=== PATIENT | female | born 1975 | race Caucasian/White ===

== ENCOUNTER 2017-05-30 10:23 | Emergency (ER) | payer MEDICAID, MEDICARE, OTHER ==
[~2017-05-30] VITALS: Ht 171.4 cm; Wt 81.2 kg
[~2017-05-30 10:23] MED LIST: IBUP-238 PO; OXYC-360 PO; Z.0.NO CURRENT MEDS
[2017-05-30 10:24] VITALS: BP 108/72; PULSE 90; RESP 14; TEMP 98.7; O2SAT 98
[2017-05-30] MEDS ORDERED: RANI150C PO (11:44)
[2017-05-30] MEDS ORDERED: LORTABS (11:44)
[2017-05-30] MEDS ORDERED: HYDR-755 PO (11:45)
[2017-05-30] MEDS ORDERED: LORA-392 PO (11:45)
[2017-05-30] MEDS ORDERED: ACETAMINOPHEN/HYDROcodone 325 MG/5 MG TAB PO ONE (11:45)
[2017-05-30] MEDS ORDERED: PENI500T PO (11:49)
[2017-05-30] MEDS ORDERED: MAGICPED SWISH-SPIT (11:49)
--- NOTE | 2017-05-30 11:51 | PD ---
HPI Chief Complaint: Oral / Dental Pain or Problem Time Seen by Provider: 11:47 Travel History International Travel<30 days: No Contact w/Intl Traveler<30days: No Traveled to known affect area: No History of Present Illness HPI 41-year-old female presents to emergency department complaining of left upper tooth pain for approximately 1-2 days. Patient states that her pain worsened over the last night and felt feverish as well. Patient states she has developed a migraine and feels more tired. States she does have chronic tooth pain however, this is worsened. She has not followed up with her primary care physician regarding this problem. States she is due to get dentures. She does use tobacco destroying to quit. Denies nausea, vomiting or diarrhea. PFSH Past Medical History Diabetes: No Diminished Hearing: No Musculoskeletal: Yes (broken ribs) Neurologic: Yes (closed head injury) Respiratory: Yes (history of punctured lungs per pt) Seizures: No ?: Not LMP: 05/23/17 Menopausal: No : 2 Para: 2 Miscarriage: 0 : 0 Dilation and Curettage (D&C): Yes Past Surgical History Tonsillectomy: Yes Tympanostomy Tube: Yes Social History Alcohol Use: Yes (DRINKS EVERYDAY) Tobacco Use: Yes (1/2 PK DAILY) Substance Use: Yes (MARIJUANA) Allergies-Medications (Allergen,Severity, Reaction): Coded Allergies: No Known Allergies (Verified , 07/22/11) Reported Meds & Prescriptions Reported Meds & Active Scripts Active Magic Mouthwash Pediatric/Adult Liq (Lidocaine/Diphenhydr/Alum/Mg/Simeth) 60 Ml Susp 5 Ml SWISH-SPIT ACHS Each 5mL contains: Diphenydramine 4.5mg, Viscous Lidocaine 2% 10mg, Maalox Advanced Regular Strength 2.7ml Penicillin V Potassium 500 Mg Tab 500 Mg PO Q8H 7 Days Reported Hydroxyzine HCl 10 Mg Tab Unknown Dose PO Ativan (Lorazepam) 0.5 Mg Tab Unknown Dose PO DAILY PRN Ranitidine (Ranitidine HCl) 150 Mg Cap 150 Mg PO DAILY Review of Systems Except as stated in HPI: all other systems reviewed are Neg Physical Exam Narrative GENERAL: Well-nourished, well-developed patient. In no acute distress SKIN: Focused skin assessment warm/dry. HEAD: Normocephalic. EYES: No scleral icterus. No injection or drainage. Poor dentition, left upper premolar completely eroded to the gumline, mild bulging with slight erythema of the gums, TTP. No fluctuance or expression of fluid. NECK: Supple, trachea midline. No JVD or lymphadenopathy. No meningismus CARDIOVASCULAR: Regular rate and rhythm without murmurs, gallops, or rubs. RESPIRATORY: Breath sounds equal bilaterally. No accessory muscle use. MUSCULOSKELETAL: No cyanosis, or edema. BACK: Nontender without obvious deformity. No CVA tenderness. Data Data Last Documented VS Vital Signs Date Time Temp Pulse Resp B/P (MAP) Pulse Ox O2 Delivery O2 Flow Rate FiO2 05/30/17 10:24 98.7 90 14 108/72 (84) 98 Orders Orders Acetamin-Hydrocod 325-5 Mg (Brigantine 5-325 (05/30/17 11:45) Ed Discharge Order (05/30/17 11:51) [facility] Medical Decision Making Medical Screen Exam Complete: Yes Emergency Medical Condition: Yes Differential Diagnosis Left upper premolar abscess, infection, fracture Narrative Course 41-year-old female presents to emergency department complaining of left upper tooth pain for approximately 1-2 days. Patient states that her pain worsened over the last night and felt feverish as well. Patient states she has developed a migraine and feels more tired. States she does have chronic tooth pain however, this is worsened. She has not followed up with her primary care physician regarding this problem. States she is due to get dentures. She does use tobacco destroying to quit. Denies nausea, vomiting or diarrhea. Vital signs stable. Physical exam findings consistent with a dental infection. Poor dentition noted. No obvious fluctuance to indicate an abscess of the gingiva. Patient will be given a pain medication in the emergency department today. Advised to use [id number] ibuprofen. Antibiotics and Magic mouthwash for outpatient use. Smoking cessation discussed. Discussed the risks versus benefit of continuing smoking especially with the poor dentition that she has. Advised to follow-up with her dentist as soon as possible and primary care physician within one week. Return to the emergency department for worsening or persistent symptoms. Diagnosis Primary Impression: Dental infection Referrals: Dentist Patient Instructions: Cigarette Smoking and Your Health (GEN), General Instructions Additional Instructions: Alternate Magic mouthwash and salt water gargles for your tooth pain. Take all antibiotics as prescribed. Follow-up with a dentist as soon as possible. Follow-up with the primary care physician within one week. If he symptoms persist or worsen return to the emergency department. Scripts Pbxgtfsltbjtcrg-Vooouczou-Gca-Alum-Simeth Liq (Magic Mouthwash Pediatric/Adult Liq) 60 Ml Susp 5 ML SWISH-SPIT ACHS for Pain Management, #60 ML 0 Refills Each 5mL contains: Diphenydramine 4.5mg, Viscous Lidocaine 2% 10mg, Maalox Advanced Regular Strength 2.7ml Prov: Sylvie Medel 05/30/17 Penicillin V Potassium (Penicillin V Potassium) 500 Mg Tab 500 MG PO Q8H for Infection for 7 Days, #21 TAB 0 Refills Prov: Sylvie Medel 05/30/17 Disposition: 01 DISCHARGE HOME Condition: Stable Sylvie Medel May 30, 2017 11:50
[2017-06-06] MEDS ORDERED: LORA-392 PO (15:13)
[2017-06-06] MEDS ORDERED: HYDR50TA94 PO ×2 (15:13→16:04)
[2017-06-06] MEDS ORDERED: HYDR-3583 PO (15:13)
[2017-06-06] MEDS ORDERED: RANI150T PO (16:03)
[2017-06-07] MEDS ORDERED: RANI150T PO (18:18)
== END 2017-05-30 12:08 | disposition home or self-care (01) ==
LOC: NEPK 10:23
DX: K04.7 Periapical abscess without sinus (principal); F17.210 Nicotine dependence, cigarettes, uncomplicated
CPT/HCPCS: 99284

== ENCOUNTER 2017-07-03 06:37 | Day surgery (SDC) | payer MEDICARE ==
[~2017-07-03] VITALS: Ht 170.2 cm; Wt 86.4 kg
[2017-07-03] VITALS (11 sets, daily range): BP systolic 89–113; BP diastolic 52–67; PULSE 50–80; RESP 18–20; TEMP 98–98.4; O2SAT 91–95
[~2017-07-03 06:37] MED LIST changes: +HYDR-3583 PO; +HYDR50TA94 PO; -IBUP-238 PO; +LORA-392 PO; -OXYC-360 PO; +RANI150T PO; -Z.0.NO CURRENT MEDS
[2017-07-03] MEDS ORDERED: OMEP40CA2 (07:10)
[2017-07-03] MEDS ORDERED: METR1TAB76 PO (07:10)
[2017-07-03] MEDS ORDERED: SODIUM CHLOR 0.9% 1000 ML IV SCH (07:15)
[2017-07-03] MEDS ORDERED: MIDAZOLAM HCL 2 MG/2 ML VIAL ONE (07:39)
[2017-07-03] MEDS ORDERED: LIDOCAINE HCL 1% 20 ML VIAL ONE (07:46)
--- NOTE | 2017-07-03 08:38 | PD.RAD ---
Post CT Procedure Prog Note Pre Procedure Diagnosis: (1) Renal mass Post Procedure Diagnosis: (1) Renal mass Procedure Date: Jul 03, 2017 Supervising Radiologist: Angel Alvares Anesthesia: Conscious Sedation Plan of Activity Patient to Unit: ROPU Patient Condition: Good See PACS Report for procedural detail/treatment Angel Alvares MD Jul 03, 2017 08:38
[2017-07-03 09:17] LABS: HEMATOCRIT 36.9 % (35.0-46.0); HEMOGLOBIN 12.7 GM/DL (11.6-15.3)
--- NOTE | 2017-07-03 09:54 | RADRPT ---
EXAM DATE/TIME: 07/03/2017 08:04 [facility] COMPARISON: No previous studies available for comparison. INDICATIONS : Right renal mass SEDATION TIME: 30 minutes BIOPSY SITE: Right kidney MEDICATION(S): 1.) 2 mg midazolam (Versed) IV 2.) 100 mcg fentanyl (Sublimaze) IV DEVICE(S): 1.) 18 gauge Temno core biopsy needle 2.) 17 gauge Sexton blunt needle MEDICAL HISTORY : None. SURGICAL HISTORY : None. ENCOUNTER: Initial ACUITY: 1 day PAIN SCORE: 0/10 LOCATION: Right flank A total of five core specimen(s) were obtained and sent to the laboratory for pathologic evaluation. PROCEDURE: 1. CT guided renal biopsy. 2. Conscious sedation with continuous EKG and oximetry monitoring. 3. EKG and oximetry remained stable throughout the procedure. Prior to the procedure informed consent was obtained. Any appropriate prior imaging studies were rev iewed. Using automated exposure control and adjustment of the mA and/or kV according to patient size, radiat ion dose was kept as low as reasonably achievable to obtain optimal diagnostic quality images. DICOM format image data is available electronically for review and comparison. The site was prepped in a sterile fashion. Full sterile technique was used, including cap, mask, anel rile gloves and gown and a large sterile sheet. Hand hygiene and 2% chlorhexidine and/or betadine/al cohol prep was utilized per protocol for cutaneous antisepsis. The skin and subcutaneous tissues wer e infiltrated with local anesthetic solution. With CT guidance the previously identified target was localized. Biopsy was performed using the presc ribed needle as above. Adequate hemostasis was obtained with compression at the puncture site. Follow-up CT scan reveals no hemorrhage. The patient tolerated the procedure well and there were no complications. The patient was returned to the Radiology Outpatient Unit in stable condition. CONCLUSION: Uncomplicated CT guided biopsy. Angel Alvares MD on July 03, 2017 at 9:37 Board Certified Radiologist. This report was verified electronically.
[2017-07-03 12:50] LABS: HEMATOCRIT 38.6 % (35.0-46.0); HEMOGLOBIN 13.1 GM/DL (11.6-15.3)
== END 2017-07-03 14:50 | disposition home or self-care (01) ==
LOC: HRAD 06:37 → HRIP 06:41 → HRAD 14:50
PROVIDERS: ATTEND Urology
DX: C64.1 Malignant neoplasm of right kidney, except renal pelvis (principal); K21.9 Gastro-esophageal reflux disease without esophagitis; F41.9 Anxiety disorder, unspecified
CPT/HCPCS: 50200; 77012; 85014; 85018; 88305; J2250; J3010

== ENCOUNTER → 2017-08-15 | Outpatient (CLI) | payer MEDICARE, MEDICAID ==
[~2017-08-15] MED LIST changes: +METR1TAB76 PO; +OMEP40CA2
--- NOTE | 2017-08-15 11:40 | RADRPT ---
EXAM DATE/TIME: 08/15/2017 11:07 [facility] COMPARISON: No previous studies available for comparison. INDICATIONS : Evaluate for pneumonia, pneumothorax or communicable disease. Pre op for right kidney removal. MEDICAL HISTORY : None. SURGICAL HISTORY : renal biopsy ENCOUNTER: Initial ACUITY: 1 day PAIN SCORE: 0/10 LOCATION: Bilateral chest FINDINGS: PA and lateral views of the chest demonstrate blunting at the left costophrenic angle with multiple r emote left rib fractures likely from previous trauma. No consolidation. Heart size normal. CONCLUSION: 1. Remote healed left rib fractures with chronic scarring at the left costophrenic angle. No active d isease. Yousuf Ortiz MD on August 15, 2017 at 11:37 Board Certified Radiologist. This report was verified electronically.
[2017-08-15 11:41] LABS: AUTOMATED NEUTROPHIL # 4.4 TH/MM3 (1.8-7.7); BASOPHIL % 0.5 % (0.0-2.0); EOSINOPHIL # 0.1 TH/MM3 (0-0.4); EOSINOPHIL % 1.7 % (0.0-4.0); HEMATOCRIT 37.5 % (35.0-46.0); LYMPH % 35.4 % (9.0-44.0); LYMPHOCYTE # 2.8 TH/MM3 (1.0-4.8); MEAN CELL VOLUME 89.1 FL (80.0-100.0); MEAN CORPUSCULAR HEMOGLOBIN 30.8 PG (27.0-34.0); MEAN CORPUSCULAR HGB CONC 34.5 % (32.0-36.0); MONO % 7.6 % (0.0-8.0); MONOCYTE # 0.6 TH/MM3 (0-0.9); NEUT % 54.8 % (16.0-70.0); PLATELET COUNT 220 TH/MM3 (150-450); RED BLOOD COUNT 4.21 MIL/MM3 (4.00-5.30); RED CELL DISTRIBUTION WIDTH 13.9 % (11.6-17.2)
[2017-08-15 11:54] LABS: PROTHROMBIN TIME - PATIENT 10.1 SEC (9.8-11.6)
[2017-08-15 12:06] LABS: ALBUMIN 3.8 GM/DL (3.4-5.0); ALT (GPT) 17 U/L (10-53); AST (GOT) 13 U/L (15-37); BICARBONATE 28.7 MEQ/L (21.0-32.0); BLOOD UREA NITROGEN 11 MG/DL (7-18); CALCIUM 8.9 MG/DL (8.5-10.1); CHLORIDE 108 MEQ/L (98-107); CREATININE 0.92 MG/DL (0.50-1.00); GLOMERULAR FILTRATION RATE 67 ML/MIN (>89); GLUCOSE,FASTING 81 MG/DL (74-99); SODIUM (NA) 143 MEQ/L (136-145)
[2017-08-15 12:09] LABS: ALKALINE PHOSPHATASE 51 U/L (45-117); TOTAL BILIRUBIN ADULT 0.2 MG/DL (0.2-1.0); TOTAL PROTEIN 7.1 GM/DL (6.4-8.2)
== END ==
LOC: CPRE 10:22
PROVIDERS: ATTEND Urology
DX: Z01.812 Encounter for preprocedural laboratory examination (principal); Z01.811 Encounter for preprocedural respiratory examination; N28.89 Other specified disorders of kidney and ureter
CPT/HCPCS: 36415; 71046; 80053; 85025; 85610; 85730

== ENCOUNTER 2017-08-22 07:44 | Inpatient (IN) | payer MEDICARE, MEDICAID ==
[~2017-08-22] VITALS: Ht 170.2 cm; Wt 82.9 kg
[~2017-08-22 07:44] MED LIST changes: -METR1TAB76 PO; -RANI150T PO
[2017-08-22] MEDS ORDERED: ceFAZolin INJ 1,000 MG VIAL ONE (08:06)
[2017-08-22] MEDS ORDERED: SODIUM CHLORIDE 0.9% INJ 100 ML ONE (08:07)
[2017-08-22] MEDS ORDERED: LACTATED RINGER'S 1000 ML IV PRN (08:30)
[2017-08-22] MEDS ORDERED: POVIDONE IODINE 5% (ANTISEPSIS KIT) 4 APPLICATIONS EACH NARE PRN (08:30)
[2017-08-22] MEDS ORDERED: METOPROLOL TARTRATE 25 MG TAB PO PRN (08:30)
[2017-08-22] MEDS ORDERED: ceFAZolin 1,000 MG/NS 100 ML IV SCH ×2 (08:30)
[2017-08-22] MEDS ORDERED: SODIUM CHLORID 0.9% 500 ML IV PRN (08:30)
[2017-08-22] MEDS ORDERED: CHLORHEXIDINE GLUCONATE 2 % 1 PACK (2 CLOTHS) TOPICAL PRN (08:30)
[2017-08-22] MEDS ORDERED: ENOXAPARIN SODIUM 30 MG/0.3 ML SYRINGE SQ ONE (09:42)
[2017-08-22] MEDS ORDERED: ENOXAPARIN SODIUM 30 MG/0.3 ML SYRINGE ONE (09:52)
[2017-08-22] MEDS ORDERED: BUPIVACAINE HCL PF 0.5% 30 ML VIAL ONE (10:19)
[2017-08-22] MEDS ORDERED: MANNITOL INJ 0 ML ONE (10:19)
[2017-08-22] MEDS ORDERED: NORMOSOL R INJ 1,000 ML IV ONE (12:00)
[2017-08-22] MEDS ORDERED: DEXAMETHASONE SOD PHOS 4 MG/ML VIAL IV ONE (12:00)
[2017-08-22] MEDS ORDERED: STERILE WATER FOR INJECTION 20 ML VIAL IV ONE (12:00)
[2017-08-22] MEDS ORDERED: PHENYLEPH/NS 1000 MCG/10 ML SYR IV ONE (12:00)
[2017-08-22] MEDS ORDERED: VECURONIUM BROMIDE 20 MG VIAL IV ONE (12:00)
[2017-08-22] MEDS ORDERED: LIDOCAINE HCL 1% PF 5 ML SYRINGE OTHER ONE (12:00)
[2017-08-22] MEDS ORDERED: PROPOFOL 200 MG/20 ML AMP IV ONE (12:00)
[2017-08-22] MEDS ORDERED: ROCURONIUM INJ 50 MG/5 ML SYRINGE IV PUSH ONE (12:00)
[2017-08-22] MEDS ORDERED: LACTATED RINGER'S 1000 ML INJ 1,000 ML IV ONE (12:00)
[2017-08-22] MEDS ORDERED: LABETALOL HCL 100 MG/20 ML VIAL IV ONE (12:00)
[2017-08-22] MEDS ORDERED: GLYCOPYRROLATE 1 MG/5 ML SYRINGE IV PUSH ONE (12:00)
[2017-08-22] MEDS ORDERED: NEOSTIGMINE 5 MG/5 ML SYRINGE IV PUSH ONE (12:00)
[2017-08-22] MEDS ORDERED: ONDANSETRON HCL 4 MG/2 ML VIAL IV ONE (12:00)
[2017-08-22] MEDS ORDERED: ESMOLOL HCL 100 MG/10 ML VIAL IV ONE (12:00)
[2017-08-22] MEDS ORDERED: HYDROmorphone HCL PF 2 MG/ML VIAL ONE (12:26)
[2017-08-22] MEDS ORDERED: ACETAMINOPHEN 1000 MG/100 ML 100 ML IV ONE (12:26)
[2017-08-22] MEDS ORDERED: SUGAMMADEX SODIUM 200 MG/2 ML VIAL IV PUSH ONE (13:24)
--- NOTE | 2017-08-22 13:46 | PD.OP ---
Operative Report Date of Surgery: Aug 22, 2017 Preoperative Diagnosis: 5 cm centrally located right renal mass Postoperative Diagnosis: Same Procedure: Right hand-assisted laparoscopic radical nephrectomy Anesthesia: DINORAHA Surgeon: Alexis Ratliff Projects Manager(s): Dr. Juan David Sepulveda Resident Surgeon: None Operation and Findings: 41-year-old female presented to the office with with findings of a 4-5 cm centrally located right renal mass. Decision was made to undergo laparoscopic hand-assisted right radical nephrectomy. Risks and benefits were discussed preoperatively including bleeding, infection, and extra organ injury. The patient was willing to proceed. The patient was brought to the operating room and identified by myself as Jannie Acuna. She was placed on to the beanbag and then underwent endotracheal tube intubation. She was then placed in the lateral recumbent position with the right side up and all areas were appropriately padded. The beanbag was then inflated. She was secured down with tape and a safety strap. She was then prepped and draped in usual sterile fashion and received preprocedure antibiotics. 15 blade was made to use the opening incision in the area just superior of the right inguinal canal. Raul' s and Camper's fascia were entered as well as the external oblique aponeurosis. The gel point was then placed into the area of the wound. A 12 mm cannula was then inserted through the GelPort and then insufflation occurred. A 12 mm cannula port was then inserted 2 cm cephalad and lateral to the umbilicus. Another 12 mm port was then inserted in the area of the subcostal region under direct visualization. Once all ports were then correctly placed, laparoscopic nephrectomy proceeded. Using my left hand the overlying stratum was then dissected with the harmonic scalpel. Initially the kidney was difficult to identify its location, however, it was found to be above the right lobe of the liver, with the liver draping over the kidney. The kidney was located very posteriorly. Once the overlying stratum was dissected away freely and then the kidney was finally identified. Using the harmonic scalpel, the lateral inferior and superior attachments were freed up. This left the hilum and the ureter still intact. Using the Ethicon stapler with a load of 45 the hilum was then ligated. Laparoscopic clips were then used to clip the ureter. The ureter was then cut with harmonic scalpel. The kidney was then delivered through the GelPort and sent to pathology. Hemostasis was checked for in the renal fossa was irrigated with normal saline. There is no evidence of any bleeding at this point in time. Surgicel powder was then used to provide further hemostasis and then a PHILIPPE drain was left in the 12mm port. The GelPort incision site was then closed by a 2 layer closure with a loop PDS followed by a #1 Vicryl suture. The wound was then irrigated and then a Monocryl suture was then used to subcuticular close the wound. The remaining 2 gel ports were then closed with Monocryl suture. The drain was sewn in with a nylon suture. Blood loss during the procedure was 100 cc. She tolerated the procedure well and was extubated and transferred to recovery room in stable condition. Alexis Ratliff DO Aug 22, 2017 13:46
[2017-08-22] MEDS ORDERED: ONDANSETRON HCL 4 MG/2 ML VIAL IV PUSH PRN (14:00)
[2017-08-22] MEDS ORDERED: ACETAMINOPHEN 650 MG/20.3 ML UDC PO PRN (14:00)
[2017-08-22] MEDS ORDERED: LORazepam 2 MG/ML VIAL ONE (14:05)
[2017-08-22] MEDS ORDERED: DO NOT ADM ANY ANTICOAGULANT DRUGS PRN (14:14)
[2017-08-22] MEDS ORDERED: LORazepam 2 MG/ML VIAL IV PUSH PRN (14:15)
[2017-08-22] MEDS ORDERED: MIDAZOLAM HCL 2 MG/2 ML VIAL ONE (14:22)
[2017-08-22] MEDS ORDERED: MORPHINE SULFATE 4 MG/ML INJ ONE (14:23)
[2017-08-22] MEDS ORDERED: HYDROmorphone HCL PCA 6 MG/30 ML IV ONE (14:30)
[2017-08-22] MEDS: LACTATED RINGER'S 1000 ML INJ 1,000 ML IV SCH ×2 (14:30→17:49)
[2017-08-22] MEDS ORDERED: ENOXAPARIN SODIUM 30 MG/0.3 ML SYRINGE SQ SCH (15:00)
[2017-08-22] MEDS: PANTOPRAZOLE SODIUM 40 MG VIAL IV PUSH SCH (15:15)
[2017-08-22] MEDS ORDERED: NALOXONE HCL 0.4 MG/ML AMP IV PUSH PRN (15:30)
[2017-08-22] MEDS ORDERED: diphenhydrAMINE HCL 50 MG/ML VIAL IV PUSH PRN (15:30)
[2017-08-22] MEDS ORDERED: *ONDANSETRON 4 MG VIAL PERIprocedural Use ONLY ONE (16:35)
[2017-08-22 17:37] LABS: HEMATOCRIT 38.3 % (35.0-46.0); MEAN CELL VOLUME 88.4 FL (80.0-100.0); MEAN CORPUSCULAR HEMOGLOBIN 29.9 PG (27.0-34.0); MEAN CORPUSCULAR HGB CONC 33.8 % (32.0-36.0); MEAN PLATELET VOLUME 9.5 FL (7.0-11.0); PLATELET COUNT 231 TH/MM3 (150-450); RED BLOOD COUNT 4.34 MIL/MM3 (4.00-5.30); RED CELL DISTRIBUTION WIDTH 13.7 % (11.6-17.2)
[2017-08-22] MEDS: HYDROmorphone HCL PCA 6 MG/30 ML IV SCH (17:41)
[2017-08-22 17:57] LABS: BICARBONATE 24.3 MEQ/L (21.0-32.0); CALCIUM 8.2 MG/DL (8.5-10.1); CREATININE 1.3 MG/DL (0.50-1.00)
[2017-08-22] MEDS: CEFAZOLIN INJ 2,000 MG in SODIUM CHLORIDE 0.9% INJ 100 ML IV SCH (18:07)
[2017-08-22 20:00] VITALS: BP 94/56; PULSE 53; RESP 18; TEMP 97.1; O2SAT 100
[2017-08-22 21:13] VITALS: O2SAT 100
[2017-08-22] MEDS: PCA - TOTAL MG DILAUDID DELIVERED PER SHIFT SCH (21:26)
[2017-08-22] MEDS: hydrOXYzine HCL 50 MG TAB PO SCH (21:36)
[2017-08-23] VITALS (8 sets, daily range): BP systolic 106–130; BP diastolic 61–71; PULSE 52–99; RESP 16–18; TEMP 97.6–99.4; O2SAT 94–98
[2017-08-23] MEDS: CEFAZOLIN INJ 2,000 MG in SODIUM CHLORIDE 0.9% INJ 100 ML IV SCH ×2 (03:45→09:49)
[2017-08-23] MEDS: PCA - TOTAL MG DILAUDID DELIVERED PER SHIFT SCH ×3 (04:53→22:00)
[2017-08-23] MEDS: LACTATED RINGER'S 1000 ML INJ 1,000 ML IV SCH ×2 (04:53→14:56)
[2017-08-23 08:32] LABS: HEMATOCRIT 36.5 % (35.0-46.0); HEMOGLOBIN 12.3 GM/DL (11.6-15.3); MEAN CELL VOLUME 87.9 FL (80.0-100.0); MEAN CORPUSCULAR HEMOGLOBIN 29.6 PG (27.0-34.0); MEAN CORPUSCULAR HGB CONC 33.7 % (32.0-36.0); PLATELET COUNT 272 TH/MM3 (150-450); RED BLOOD COUNT 4.15 MIL/MM3 (4.00-5.30); RED CELL DISTRIBUTION WIDTH 13.7 % (11.6-17.2)
[2017-08-23 09:04] LABS: CALCIUM 8.3 MG/DL (8.5-10.1); CREATININE 1.69 MG/DL (0.50-1.00)
--- NOTE | 2017-08-23 09:07 | HHI.PR ---
Subjective Patient symptoms today Pt seen and examined. Pain controlled. Objective Vital Signs Vital Signs Date Time Temp Pulse Resp B/P (MAP) Pulse Ox O2 Delivery O2 Flow Rate FiO2 08/23/17 08:14 95 08/23/17 08:00 97.9 67 18 130/63 (85) 96 08/23/17 04:53 17 08/23/17 04:00 97.6 52 17 110/61 (77) 98 08/23/17 00:00 97.6 53 17 106/62 (77) 95 08/22/17 21:26 17 08/22/17 21:13 100 Nasal Cannula 4.00 08/22/17 20:00 97.1 53 18 94/56 (69) 100 08/22/17 17:41 16 08/22/17 16:40 51 16 109/66 (80) 96 Nasal Cannula 4 08/22/17 16:00 51 16 106/64 (78) 96 Nasal Cannula 4 08/22/17 15:00 53 16 114/63 (80) 94 Nasal Cannula 5 08/22/17 14:45 59 16 98/52 (67) 92 Nasal Cannula 5 08/22/17 14:30 57 16 101/52 (68) 93 Nasal Cannula 5 08/22/17 14:15 75 16 129/72 (91) 94 Nasal Cannula 3 08/22/17 14:07 98.0 97 16 121/79 (93) 96 Nasal Cannula 3 Intake & Output 08/23/17 08/23/17 07:00 19:00 Intake Total 1360 ml Output Total 220 ml Balance 1140 ml Intake Oral 240 ml IV Total 1120 ml Output Urine Total 200 ml Drainage Total 20 ml Result Diagram: 08/23/17 0807 08/23/17 0807 Objective Remarks Abd:soft,nt,nd Kyle with clear urine PHILIPPE serous drainage Medications and IVs Current Medications Medications (Trade) Dose Ordered Sig/Cynthia Route Start Time Stop Time Status Last Admin Lactated Ringer's 1,000 ml @ 30 mls/hr Q24H PRN IV 08/22/17 08:30 08/25/17 08:29 08/22/17 08:37 Sodium Chloride 500 ml @ 30 mls/hr [id number] PRN IV 08/22/17 08:30 08/25/17 08:29 (Lopressor) 25 mg HOT STRIP FINISHER PRN PO 08/22/17 08:30 08/25/17 08:29 (Betadine 5% Antisepsis Kit) 1 applic HOT STRIP FINISHER PRN EACH NARE 08/22/17 08:30 08/25/17 08:29 08/22/17 08:37 (Chlorhexidine 2% Cloth) 3 pack HOT STRIP FINISHER PRN TOPICAL 08/22/17 08:30 08/25/17 08:29 08/22/17 08:37 Cefazolin Sodium 1000 mg/Sodium Chloride 100 ml @ 200 mls/hr HOT STRIP FINISHER IV 08/22/17 08:30 08/25/17 08:29 08/22/17 10:37 Lactated Ringer's 1,000 ml @ 100 mls/hr Q10H IV 08/22/17 14:00 08/23/17 04:53 Cefazolin Sodium 2000 mg/Sodium Chloride 120 ml @ 240 mls/hr Q8H IV 08/22/17 19:00 08/23/17 11:29 08/23/17 03:45 (Tylenol 650 Mg/ 20 ml Liq) 650 mg Q6H PRN PO 08/22/17 14:00 (Zofran Inj) 4 mg Q6HR PRN IV PUSH 08/22/17 14:00 08/22/17 17:48 (Ativan) 0.5 mg Q8H PRN PO 08/22/17 14:00 (Percocet 10-325 Mg) 1 tab Q6H PRN PO 08/22/17 14:00 (Atarax) 50 mg HS PO 08/22/17 21:00 08/22/17 21:36 (Protonix Inj) 40 mg Q24H IV PUSH 08/22/17 14:00 08/22/17 15:15 (Ativan Inj) 1 mg Q6H PRN IV PUSH 08/22/17 14:15 08/22/17 14:10 (Lovenox Inj) 30 mg Q24H SQ 08/23/17 15:00 Miscellaneous Information ALL NURSING DEPARTME... UNSCH PRN .XX 08/22/17 14:14 08/23/17 14:13 (Dilaudid CHOREOGRAPHY DIRECTOR Inj) 6 mg UNSCH IV 08/22/17 15:30 08/22/17 17:41 CHOREOGRAPHY DIRECTOR Dosage Infused (Pha) 1 Q8HR .XX 08/22/17 22:00 08/23/17 04:53 (Narcan Inj) 0.4 mg UNSCH PRN IV PUSH 08/22/17 15:30 (Benadryl Inj) 25 mg Q6H PRN IV PUSH 08/22/17 15:30 Assessment and Plan Assessment and Plan Stable s/p Right ESTRADA lap Nx OOB/Ambulate Void trial today Alexis Ratliff DO Aug 23, 2017 09:07
[2017-08-23] MEDS: ENOXAPARIN SODIUM 30 MG/0.3 ML SYRINGE SQ SCH (14:32)
[2017-08-23] MEDS: PANTOPRAZOLE SODIUM 40 MG VIAL IV PUSH SCH (14:32)
[2017-08-23] MEDS: hydrOXYzine HCL 50 MG TAB PO SCH (21:00)
[2017-08-24] VITALS (8 sets, daily range): BP systolic 112–124; BP diastolic 67–90; PULSE 59–87; RESP 16–19; TEMP 98.1–99; O2SAT 94–99
[2017-08-24] MEDS: HYDROmorphone HCL PCA 6 MG/30 ML IV SCH (00:42)
[2017-08-24 05:28] LABS: HEMATOCRIT 31.6 % (35.0-46.0); HEMOGLOBIN 10.8 GM/DL (11.6-15.3); MEAN CELL VOLUME 87.8 FL (80.0-100.0); MEAN CORPUSCULAR HEMOGLOBIN 30.1 PG (27.0-34.0); MEAN CORPUSCULAR HGB CONC 34.3 % (32.0-36.0); MEAN PLATELET VOLUME 9.1 FL (7.0-11.0); PLATELET COUNT 207 TH/MM3 (150-450); RED CELL DISTRIBUTION WIDTH 13.5 % (11.6-17.2); WHITE BLOOD COUNT 8.9 TH/MM3 (4.0-11.0)
[2017-08-24 06:00] LABS: BICARBONATE 26.5 MEQ/L (21.0-32.0); CALCIUM 8.3 MG/DL (8.5-10.1); CREATININE 1.4 MG/DL (0.50-1.00)
[2017-08-24] MEDS ORDERED: RESP: ALBUTEROL 2.5 MG/3 ML NEB (PRN) NEB (09:15)
[2017-08-24] MEDS ORDERED: oxyCODONE/ACETAMINOPHEN 7.5 MG/325 MG TAB PO PRN (09:15)
[2017-08-24] MEDS ORDERED: BISACODYL 10 MG SUPP RECTAL ONE (09:15)
[2017-08-24] MEDS ORDERED: HYDROmorphone HCL PF 2 MG/ML VIAL IV PUSH PRN (09:15)
[2017-08-24] MEDS ORDERED: RESP: ALBUTEROL 2.5 MG/3 ML NEB (SCH) INH ONE (09:30)
[2017-08-24] MEDS: LACTATED RINGER'S 1000 ML INJ 1,000 ML IV SCH ×3 (10:02→20:35)
[2017-08-24] MEDS: LORazepam 0.5 MG TAB PO PRN ×2 (10:27→20:34)
[2017-08-24] MEDS: oxyCODONE/ACETAMINOPHEN 10 MG/325 MG TAB PO PRN ×2 (10:27→17:35)
[2017-08-24] MEDS: PANTOPRAZOLE SODIUM 40 MG VIAL IV PUSH SCH (13:06)
[2017-08-24] MEDS: ENOXAPARIN SODIUM 30 MG/0.3 ML SYRINGE SQ SCH (13:07)
[2017-08-24] MEDS: hydrOXYzine HCL 50 MG TAB PO SCH (20:33)
[2017-08-25] VITALS: BP 115/72; PULSE 85; RESP 16; TEMP 98.3; O2SAT 92
[2017-08-25] MEDS: oxyCODONE/ACETAMINOPHEN 10 MG/325 MG TAB PO PRN ×2 (01:07→08:52)
[2017-08-25 04:00] VITALS: BP 111/74; PULSE 81; RESP 16; TEMP 98.2; O2SAT 99
[2017-08-25 07:57] VITALS: BP 125/66; PULSE 75; RESP 18; TEMP 97.8; O2SAT 96
--- NOTE | 2017-08-25 08:32 | HHI.PR ---
Subjective Patient symptoms today Pt seen and examined. Feels well. Objective Vital Signs Vital Signs Date Time Temp Pulse Resp B/P (MAP) Pulse Ox O2 Delivery O2 Flow Rate FiO2 08/25/17 07:57 97.8 75 18 125/66 (85) 96 08/25/17 04:00 98.2 81 16 111/74 (86) 99 08/25/17 00:00 98.3 85 16 115/72 (86) 92 08/24/17 21:54 94 Nasal Cannula 2.00 08/24/17 20:00 98.2 87 16 112/75 (87) 95 08/24/17 15:46 98.1 81 19 116/67 (83) 95 08/24/17 11:36 98.8 59 19 120/70 (87) 95 08/24/17 11:30 99 Nasal Cannula 2.00 Intake & Output 08/25/17 08/25/17 06:59 18:59 Intake Total 1240 ml Balance 1240 ml Intake Oral 240 ml IV Total 1000 ml # Voids 3 # Bowel Movements 0 Result Diagram: 08/24/17 0453 08/24/17 0453 Objective Remarks Abd:soft,nt,nd Kyle with clear urine PHILIPPE serous drainage 08/25 Abd:soft,nt,nd Wound:clean and dry Voiding well. Medications and IVs Current Medications Medications (Trade) Dose Ordered Sig/Cynthia Route Start Time Stop Time Status Last Admin Lactated Ringer's 1,000 ml @ 100 mls/hr Q10H IV 08/22/17 14:00 08/24/17 20:35 (Tylenol 650 Mg/ 20 ml Liq) 650 mg Q6H PRN PO 08/22/17 14:00 (Zofran Inj) 4 mg Q6HR PRN IV PUSH 08/22/17 14:00 08/22/17 17:48 (Ativan) 0.5 mg Q8H PRN PO 08/22/17 14:00 08/24/17 20:34 (Percocet 10-325 Mg) 1 tab Q6H PRN PO 08/22/17 14:00 08/25/17 01:07 (Atarax) 50 mg HS PO 08/22/17 21:00 08/24/17 20:33 (Protonix Inj) 40 mg Q24H IV PUSH 08/22/17 14:00 08/24/17 13:06 (Ativan Inj) 1 mg Q6H PRN IV PUSH 08/22/17 14:15 08/22/17 14:10 (Lovenox Inj) 30 mg Q24H SQ 08/23/17 15:00 08/24/17 13:07 (Benadryl Inj) 25 mg Q6H PRN IV PUSH 08/22/17 15:30 (Dilaudid Pf Inj) 1 mg Q4H PRN IV PUSH 08/24/17 09:15 (Albuterol Neb) 2.5 mg Q8HR NEB PRN NEB 08/24/17 09:15 Assessment and Plan Assessment and Plan Stable s/p Right ESTRADA lap Nx OOB/Ambulate Void trial today 08/25 Stable s/p Right ESTRADA lap Nx D/C home today Alexis Ratliff DO Aug 25, 2017 08:32
[2017-08-25] MEDS: LORazepam 0.5 MG TAB PO PRN (10:01)
== END 2017-08-25 11:41 | disposition home or self-care (01) | DRG 658 ==
LOC: HSDI 07:44 → N07B 16:48
PROVIDERS: ADMIT Urology; ATTEND Urology
PROC: 0TT00ZZ Resection of Right Kidney, Open Approach (ICD-10-PCS; principal; 2017-08-22 10:31)
DX: C64.1 Malignant neoplasm of right kidney, except renal pelvis (principal); F20.9 Schizophrenia, unspecified; K21.9 Gastro-esophageal reflux disease without esophagitis; F17.210 Nicotine dependence, cigarettes, uncomplicated; Z86.718 Personal history of other venous thrombosis and embolism
CPT/HCPCS: 80048; 85027; 86850; 86900; 86901; 86920; 88307; 94150; 94664; C9113; J0131; J0690; J1100; J1170; J1650; J2060; J2150; J2250; J2270; J2370; J2405; J2710; J3010; J7120; J7613